=== PATIENT | male | born 1955 | race Caucasian/White ===

== ENCOUNTER 2018-04-30 16:34 | Inpatient (IN) | payer BC ==
[~2018-04-30] VITALS: Ht 188 cm; Wt 95.7 kg
--- NOTE | 2018-04-30 16:36 | NUR ---
PT JORGE GUALLPA, CURRENTLY AWAITING BED
--- NOTE | 2018-04-30 16:39 | NUR ---
PT TAKEN TO BED 11 BY EMS CREW
--- NOTE | 2018-04-30 16:40 | NUR ---
PATIENT BIBA FOR LEFT FLANK PAIN X 2 WEEKS AND CHEST PAIN X FEW HOURS. [facility] GAVE PT NITRO X 2 WITH NO RELIEF. PT HAS IV IN WRIST 20 GAUGE. PT STATED HE WAS WALKING HIS DOG AND THE PAIN BECAME OVERWHELMING. BP 124/72, PULSE IS 126. PAIN IS 10/10 AT THIS TIME. BOWEL SOUNDS ACTIVE IN ALL 4 Q. PT IS A/OX 4. MED HX IS HTN. KNA; VSS; PATIENT POSITIONED FOR COMFORT; HOB ELEVATED; BEDRAILS UP X2; BED DOWN. ER MD MADE AWARE OF PT STATUS.
[2018-04-30 16:46] VITALS: BP 124/72
--- NOTE | 2018-04-30 17:15 | NUR ---
SPOKE TO ON THE PHONE TO LET HER KNOW PT IS IN THE HOSPITAL PER PT INSTRUCTIONS.
[2018-04-30 17:26] LABS: BASOPHILS % (AUTO) 0.3 % (0.0-2.0); EOSINOPHILS # (AUTO) 0.1 K/uL (0-0.4); EOSINOPHILS % (AUTO) 1.1 % (0.0-4.0); HEMATOCRIT 42.9 % (36-52); HEMOGLOBIN 14.2 g/dL (12.0-18.0); LYMPHOCYTES # (AUTO) 1.1 K/uL (2.0-11.5); LYMPHOCYTES % (AUTO) 8.7 % (20.5-51.1); MEAN CORPUSCULAR HEMOGLOBIN 30 pg (27-31); MEAN CORPUSCULAR HGB CONC 33 g/dL (33-37); MEAN CORPUSCULAR VOLUME 90.1 fL (80-94); MONOCYTES # (AUTO) 0.5 K/uL (0.8-1.0); MONOCYTES % (AUTO) 4.2 % (1.7-9.3); NEUTROPHILS # (AUTO) 10.9 K/uL (1.8-7.7); NEUTROPHILS % (AUTO) 85.7 % (42.2-75.2); PLATELET COUNT (AUTO) 250 K/uL (140-450); RED BLOOD CELL COUNT(AUTO) 4.76 MIL/uL (4.20-6.10); RED CELL DISTRIBUTION WIDTH 12.7 % (11.6-13.7); WHITE BLOOD COUNT (AUTO) 12.7 K/uL (4.8-10.8)
[2018-04-30 17:38] LABS: ANION GAP 12.1 (8-16); CARBON DIOXIDE 27.5 mmol/L (21-32); CREATININE 1.1 mg/dL (0.7-1.3); POTASSIUM 3.6 mmol/L (3.5-5.1)
[2018-04-30 17:49] LABS: PROTHROMBIN TIME 10.5 secs (10.8-13.4)
[2018-04-30 17:50] LABS: ALBUMIN 3.8 g/dL (3.4-5.0); TOTAL BILIRUBIN 0.6 mg/dL (0.0-1.0)
--- NOTE | 2018-04-30 19:15 | NUR ---
REPORT GIVEN TO ALANNA AYERS
--- NOTE | 2018-04-30 20:05 | NUR ---
PT SITTING UP IN BED, VSS
[2018-04-30] MEDS ORDERED: MORPHINE SULFATE 4 MG/ML SYR IVP ONE ×2 (20:25→21:25)
[2018-04-30] MEDS ORDERED: LORazepam 2 MG/ML VIAL IVP ONE (20:25)
--- NOTE | 2018-04-30 21:00 | NUR ---
PT HAVING SOME PAIN. 11/10 AT THIS TIME. ER MD MADE AWARE
[2018-04-30] MEDS ORDERED: NITROGLYCERIN 0.4 MG TAB SL PRN (22:05)
[2018-04-30] MEDS ORDERED: DOCUSATE SODIUM 100 MG GELCAP PO PRN (22:05)
[2018-04-30] MEDS ORDERED: MORPHINE SULFATE 4 MG/ML SYR IVP PRN (22:05)
[2018-04-30] MEDS ORDERED: ACETAMINOPHEN 325 MG TAB PO PRN (22:05)
[2018-04-30] MEDS ORDERED: ONDANSETRON 4 MG/2 ML VIAL IM/IVP PRN (22:05)
[2018-04-30] MEDS ORDERED: HYDROcodone/APAP 5/325 MG 1 TAB TAB PO PRN (22:05)
[2018-04-30 22:35] VITALS: BP 128/74
--- NOTE | 2018-04-30 22:35 | NUR ---
Pt report given to PHILIPPE AYERS. Transfer of care at this time.VSS
--- NOTE | 2018-04-30 22:35 | NUR ---
Patient will be admitted to care of DR. MENON. Admited to TELEMETRY. Will go to room 106B. Belongings list completed. Report to PHILIPPE AYERS. PT VSS
--- NOTE | 2018-04-30 22:35 | NUR ---
RECEIVED REPORT FROM DAYSHIFT NURSE AT BEDSIDE FOR CONTINUITY OF CARE. PT AAOX4. PT IV NOTED R WRIST 20G. NO SOB NO S/S OF DISTRESS ON RA. BED LOWERED PT FALL RISK PT ORIENTED TO ROOM. WILL CONTINUE TO MONITOR.
[2018-04-30 22:39] LABS: MAGNESIUM 1.8 mg/dL (1.8-2.4); PHOSPHORUS 2.1 mg/dL (2.5-4.9); THYROID STIMULATING HORMONE 1.65 uIU/mL (0.34-3.74)
[2018-04-30] MEDS: NACL 0.9% 1,000 ML IV SCH (23:21)
[2018-04-30] MEDS ORDERED: HYDROmorphone 1 MG/ML AMP IVP PRN (23:55)
[2018-05-01] VITALS (12 sets, daily range): BP systolic 73–110; BP diastolic 43–69
[2018-05-01] MEDS ORDERED: SODIUM PHOS / POTASSIUM PHOS 1 PKT PDR PO ONE (01:30)
[2018-05-01] MEDS ORDERED: KETOROLAC 30 MG/ML VIAL IVP PRN (01:30)
[2018-05-01] MEDS ORDERED: ALPR0.5T2 PO (01:46)
[2018-05-01] MEDS ORDERED: ACET-9533 PO (01:46)
[2018-05-01] MEDS ORDERED: ATEN1TAB PO (01:46)
[2018-05-01] MEDS ORDERED: ZET10 PO (01:46)
[2018-05-01 01:48] LABS: APPEARANCE,URINE CLEAR (CLEAR); BILIRUBIN,URINE NEGATIVE (NEGATIVE); BLOOD, URINE 1+ (NEGATIVE); COLOR,URINE YELLOW (YELLOW); LEUKOCYTE ESTERASE ,URINE NEGATIVE (NEGATIVE); NITRITE, URINE NEGATIVE (NEGATIVE); UGLUCOSE NEGATIVE (NEGATIVE)
[2018-05-01 02:15] LABS: BARBITURATE, URINE NEGATIVE ng/ml (NEG <=200); BENZODIAZEPINE, URINE POSITIVE ng/mL (NEG <=200); CANNABINOID, URINE NEGATIVE ng/mL (NEG <=50); COCAINE, URINE NEGATIVE ng/mL (NEG <=300); OPIATE, URINE POSITIVE ng/mL (NEG <=2000); PHENCYCLIDINE SCREEN,URINE NEGATIVE ng/mL (NEG <=25)
[2018-05-01] MEDS: ALPRAZolam 0.5 MG TAB PO SCH ×3 (02:55→21:38)
[2018-05-01] MEDS ORDERED: ALPRAZolam 0.25 MG TAB ONE (03:02)
[2018-05-01 03:15] LABS: RBC,URINE 0-5 (RARE) /HPF (0-5); WBC,URINE 0-5 (RARE) /HPF (0-5)
[2018-05-01] MEDS ORDERED: METOPROLOL 25 MG TAB PO ONE (03:40)
[2018-05-01] MEDS ORDERED: CYCLOBENZAPRINE 10 MG TAB PO SCH ×2 (03:45→09:00)
[2018-05-01] MEDS ORDERED: oxyCODONE/APAP 5/325 MG 1 TAB TAB PO PRN (05:05)
[2018-05-01] MEDS: HYDROmorphone 1 MG/ML AMP IVP PRN ×3 (05:20→21:44)
--- NOTE | 2018-05-01 07:20 | NUR ---
RECEIVED REPORT FROM PERPETUAL INVENTORY CLERK NURSE AT BEDSIDE. PT IS AAOX4. IV NOTED R WRIST 20G, PATENT AND INTACT, INFUSING IV NS AT 60ML/HR. NO S/S OF DISTRESS ON 2L O2 NC. BED IN LOWEST POSITION. FALL RISK PRECAUTION IN PLACE. PT ON TELE. WILL CONTINUE TO MONITOR.
--- NOTE | 2018-05-01 07:26 | NUR ---
ENDORSED REPORT TO DAYSHIFT NURSE AT BEDSIDE FOR CONTINUITY OF CARE.
[2018-05-01 07:27] LABS: HEMATOCRIT 47.3 % (36-52); HEMOGLOBIN 15.4 g/dL (12.0-18.0); LYMPHOCYTES # (AUTO) 0.5 K/uL (2.0-11.5); LYMPHOCYTES % (AUTO) 7.9 % (20.5-51.1); MEAN CORPUSCULAR HEMOGLOBIN 30 pg (27-31); MEAN CORPUSCULAR HGB CONC 33 g/dL (33-37); MEAN CORPUSCULAR VOLUME 91.5 fL (80-94); MONOCYTES # (AUTO) 0.6 K/uL (0.8-1.0); MONOCYTES % (AUTO) 9.7 % (1.7-9.3); NEUTROPHILS # (AUTO) 5.5 K/uL (1.8-7.7); NEUTROPHILS % (AUTO) 82.4 % (42.2-75.2); PLATELET COUNT (AUTO) 325 K/uL (140-450); RED BLOOD CELL COUNT(AUTO) 5.17 MIL/uL (4.20-6.10); RED CELL DISTRIBUTION WIDTH 12.8 % (11.6-13.7); WHITE BLOOD COUNT (AUTO) 6.7 K/uL (4.8-10.8)
--- NOTE | 2018-05-01 07:50 | NUR ---
VITALS CHECKED WHEN PT IS SITTING, BP 73/52 HR 108, REPORTED TO DR WHALEY. MADE PT SUPINE IN THE BED RECHECKED BP 75/46.
--- NOTE | 2018-05-01 08:00 | NUR ---
CONSENT FOR CT IV CONTRAST SIGNED. PT DENIES ANY ALLERGY. PT WAS TAKEN RADIOLOGY WITH O2 2L NC.
--- NOTE | 2018-05-01 08:11 | NUR ---
PATIENT HAS BEEN SCREENED AND CATEGORIZED MODERATE NUTRITION RISK. PATIENT WILL BE SEEN WITHIN 3-5 DAYS OF ADMISSION. 05/03/18[address]
[2018-05-01 08:35] LABS: ANION GAP 17.5 (8-16); CARBON DIOXIDE 25.8 mmol/L (21-32); CREATININE 1.9 mg/dL (0.7-1.3); POTASSIUM 4.3 mmol/L (3.5-5.1)
[2018-05-01 08:49] LABS: MAGNESIUM 1.4 mg/dL (1.8-2.4); PHOSPHORUS 4.2 mg/dL (2.5-4.9)
[2018-05-01 08:54] LABS: CHOL/HDL RATIO 2.6 (1-4.5)
[2018-05-01] MEDS ORDERED: LISINOPRIL 5 MG TAB PO SCH (09:00)
[2018-05-01] MEDS ORDERED: METHOCARBAMOL 500 MG TAB PO SCH (09:00)
[2018-05-01] MEDS ORDERED: DOCUSATE SODIUM 100 MG GELCAP PO SCH (09:00)
[2018-05-01] MEDS ORDERED: METOPROLOL 25 MG TAB PO SCH (09:00)
[2018-05-01] MEDS ORDERED: ATENOLOL 50 MG TAB PO SCH (09:00)
[2018-05-01] MEDS: CARISOPRODOL 350 MG TAB PO SCH ×3 (09:22→17:02)
[2018-05-01] MEDS: GABAPENTIN 300 MG CAP PO SCH ×3 (09:22→17:02)
[2018-05-01] MEDS: ATORVASTATIN 20 MG TAB PO SCH (09:22)
[2018-05-01] MEDS: DOCUSATE SODIUM 100 MG GELCAP PO SCH ×2 (09:22→21:38)
[2018-05-01] MEDS: ASPIRIN 81 MG TAB.CHEW PO SCH (09:24)
[2018-05-01] MEDS: DULoxetine 30 MG CAPDR PO SCH (09:38)
[2018-05-01] MEDS: EZETIMIBE 10 MG TAB PO SCH (09:38)
--- NOTE | 2018-05-01 10:10 | NUR ---
TRANSFERRED IN FROM [facility] PER BED THIS 62 YR. OLD MALE FOR LEFT CHEST TUBE INSERTION ACCPD. BY DR. FONTANA, , RESIDENETS, [facility] RNS. PT LYING ON HIS RT. SIDE. 02 ADM. AT 2 L/MIN/NC. IV 0.9 NS INFUSING AT 130ML/HR VIA RT. FOREARM IV SITE. PLACED ON MACHINERY DISMANTLER, IN ST WITHOUT ECTOPICS HR 108/MIN. [place] WELL. HAND GRASPS EQUAL. .
--- NOTE | 2018-05-01 10:15 | NUR ---
DR. WHALEY SPOKE TO PT'S RE: CHEST TUBE INSERTION. CONSENT OBTAINED.
--- NOTE | 2018-05-01 10:16 | NUR ---
MORPHINE 2 MG IVP GIVEN PRIOR TO CHEST TUBE INSERTION.
--- NOTE | 2018-05-01 10:17 | NUR ---
VERSED 2 MG IVP GIVEN.
--- NOTE | 2018-05-01 10:19 | NUR ---
ZOFRAN 4 MG IVP GIVEN PRIOR TO CHEST TUBE INSERTION.
[2018-05-01] MEDS ORDERED: MORPHINE SULFATE 2 MG/ML SYR ONE (10:20)
[2018-05-01] MEDS ORDERED: MIDAZOLAM 2 MG/2 ML VIAL ONE (10:21)
--- NOTE | 2018-05-01 10:30 | NUR ---
LEFT CHEST TUBE INSERTED BY DR. FONTANA (ER PHYSICIAN) CONNECTED TO PLEUREVAC DRAINAGE TO 20 CM SUCTION.. OBTAINED 1550 ML OF DARK BROWN DRElicia
[2018-05-01] MEDS ORDERED: ONDANSETRON 4 MG/2 ML VIAL IVP ONE (10:50)
[2018-05-01] MEDS ORDERED: MIDAZOLAM 2 MG/2 ML VIAL IV ONE (10:50)
[2018-05-01] MEDS ORDERED: MORPHINE SULFATE 2 MG/ML SYR IVP ONE (10:50)
[2018-05-01] MEDS ORDERED: LIDOCAINE 1% 500 MG/50 ML VIAL INJ SCH (11:00)
[2018-05-01] MEDS ORDERED: LIDOCAINE 1% ***ER ONLY *** 10 MG/ML VIAL INJ SCH (11:00)
--- NOTE | 2018-05-01 11:00 | NUR ---
RECEIVED REPORT FROM ODALYS. PT RESTING IN BED, AWAKE. A/O X4. MAKES NEEDS KNOWN. NO SOB OR ACUTE RESPIRATORY DISTRESS NOTED. ON O2 AT 2 LTR/MIN VIA NC. SKIN DRY AND WARM TO TOUCH. LUNGS SOUND DIMINISHED. CHEST TUBE NOTED ON LEFT LOWER CHEST DRAINING DARK RED DRAINAGE. CHEST TUBE SECURED WITH DRESSING, INTACT. RIGHT FOREARM PERIPHERAL LINE 20. INTACT. FLUSHED. NS RUNNING AT 130 ML/HR. ABDOMEN SOFT ROUND AND NON-TENDER. ACTIVE BOWEL SOUND. NERVE STIMULATOR IMPLANT ( PER PT) ON LEFT BUTTOCK NOTED. SITE INTACT. SKIN INTACT. HOB ELEVATED. BED IN LOW POSITION LOCKED. WILL CONTINUE TO MONITOR. Addendum: 05/01/18 at 1500 by Mariola Barker RN NOT NERVE, NEURO STIMULATOR
--- NOTE | 2018-05-01 11:00 | NUR ---
PORTABLE CXR DONE.
[2018-05-01] MEDS: NACL 0.9% 1,000 ML IV SCH ×2 (11:01→13:18)
--- NOTE | 2018-05-01 11:38 | NUR ---
THORACENTESIS FLUID FOR FUNGAL CULTURE TAKEN TO THE LAB.
--- NOTE | 2018-05-01 11:45 | NUR ---
PT C/O CHEST PAIN. DENIES SOB OR DIFFICULTY BREATHING. CONTINUE ON O2 AT 2 LTR/MIN VIA NC. DILAUDID ADMINISTERED PER ORDER. DENIES DIZZINESS OR NAUSEA. AT BEDSIDE. CONTINUE TO MONITOR.
--- NOTE | 2018-05-01 11:53 | NUR ---
DR. WHALEY MADE AWARE ABOUT DECREASED BP 74/50. WILL F/U ORDER.
--- NOTE | 2018-05-01 12:22 | NUR ---
RECEIVED A CALL FROM BLADE SCALE CLERK FOR [facility]. FOR DISCHARGE NEEDS CALL HIM AT [phone]. WHEN STABLE, MAY WANT TO TRANSFER TO CONTRACTED HOSPITAL.
--- NOTE | 2018-05-01 12:23 | NUR ---
DR. WHALEY MADE AWARE ABOUT BP 84/57. WILL FOLLOW UP ON ORDER.
[2018-05-01] MEDS ORDERED: NACL 0.9% 1,000 ML IV ONE ×2 (12:25→18:55)
--- NOTE | 2018-05-01 12:59 | NUR ---
PT ON NS BOLUS. PT AWAKE. NO ANY CHANGE IN LOC. CONTINUE TO MONITOR.
--- NOTE | 2018-05-01 13:09 | NUR ---
TURNED OFF THE CHEST TUBE SUCTION PER DR. MARCH.
--- NOTE | 2018-05-01 13:09 | NUR ---
PT SEEN BY DR. FRANCO. UPDATED PT CONDITION. AWARE ABOUT LOW BP 75/48.
--- NOTE | 2018-05-01 13:36 | NUR ---
ECHO AT BEDSIDE AT THIS TIME.
--- NOTE | 2018-05-01 13:55 | NUR ---
DR. WHALEY MADE AWARE ABOUT BP 84/61. EVALUATED BY DR. METCALF. NS INFUSING AT 130 ML/HR. NO C/O CHEST PAIN. NO SOB OR RESPIRATORY DISTRESS NOTED. CONTINUE ON O2 AT 2 LTR/MIN VIA NC. HOB ELEVATED. BED IN LOW POSITION. CONTINUE ON BEDSIDE MONITOR.
--- NOTE | 2018-05-01 14:13 | NUR ---
DR. MCKOY MADE AWARE ABOUT LOW MAGNESIUM 1.4 AND CA 8.4. WILL F/U ORDER.
[2018-05-01] MEDS ORDERED: MAG SULF 2000 MG/WATER PREMIX 100 ML IV ONE (14:15)
[2018-05-01] MEDS ORDERED: MAG SULF 2000 MG/WATER PREMIX 100 ML IV SCH ×2 (14:30→14:40)
[2018-05-01 14:39] LABS: APPEARANCE,UNSPUN,BODY FLUID CLOUDY (CLEAR); SPECIMENTYPE,BODY FLUID PLEURAL
[2018-05-01 14:42] LABS: APPEARANCE,SPUN,BODY FLUID CLOUDY (CLEAR); COLOR,BODY FLUID AMBER (LT YELLOW); POLYNUCLEAR, BODY FLUID 97 %; RBC, BODY FLUID 569 /cu. mm.; TOTAL VOLUME,BODY FLUID 60 mL; WBC, BODY FLUID 6180 /cu. mm.
[2018-05-01 15:22] LABS: GLUCOSE,BODY FLUID 54 mg/dL
--- NOTE | 2018-05-01 16:13 | NUR ---
NO C/O ANY CHEST PAIN. NO SOB OR ACUTE RESPIRATORY DISTRESS NOTED. CONTINUE ON O2 AT 2 LTR/MIN. NS INFUSING AT 130 ML/HR. CHEST TUBE IN PLACE. DRESSING SITE DRY AND INTACT. WILL CONTINUE TO MONITOR.
--- NOTE | 2018-05-01 16:53 | NUR ---
CHEST X-RAY RESULT RECEIVED. READ RESULT TO DR. CALDWELL. DR. WHALEY AWARE ABOUT THE RESULT. TURNED THE CHEST TUBE SUCTION ON PER DR WHALEY.
[2018-05-01] MEDS ORDERED: MAG SULF 2000 MG/WATER PREMIX 50 ML IV SCH (17:15)
--- NOTE | 2018-05-01 18:23 | NUR ---
DR. MOREL AT THE BEDSIDE EVALUATING PT.
--- NOTE | 2018-05-01 18:40 | NUR ---
PT NOTED WITH BP 75/45. DR. CAMARENA MADE AWARE. NO URINE OUTPUT NOTED THROUGHOUT THE SHIFT. BLADDER SCAN DONE SHOWED> 579 ML. PT DENIES ANY BLADDER DISCOMFORT OR PAIN. STATED HE HAD VOIDED X1 THIS MORNING. ENCOURAGED TO VOID X2 THROUGHOUT THE SHIFT BUT UNABLE TO MAKE IT. PT STATED HE WANTS TO TRY VOIDING LATER. DR. CAMARENA MADE AWARE.
--- NOTE | 2018-05-01 18:46 | NUR ---
PT RESTING IN BED. DENIES ANY CHEST PAIN OR DIFFICULTY BREATHING. CONTINUE ON O2 AT 2 LTR/MIN VIA NC. CHEST TUBE IN PLACE. DRESSING DRY AND INTACT.
--- NOTE | 2018-05-01 19:20 | NUR ---
RECEIVED REPORT FROM MORNING SHIFT RN, DINORA, FOR CONTINUITY OF CARE. PT IS AAOX4, AFEBRILE TEMP 98.3, BP =87/50 , RR=28, SATING 95%. FULL CODE, NKA.ST ON MARINE BIOLOGIST. LUNG SOUND CLEAR/DIMINISHED ON BILATERAL UPPER/LOWER LOBES. ON 4L N/C. CARDIAC DIET, PT DRINKING WATER AT BEDSIDE. CONTINENT, URINAL AT BEDSIDE. NO URINE OUT PUT AT THIS TIME. UP AT BEDSIDE WITH STREET WORKERDILLAN FOR STANDBY ASSISTANCE. SKIN IS NONINTACT. CHEST TUBE ON LLQ, DARK SANGUINOUS DRAINAGE OF 550ML. PT RATES PAIN 7/10. LEFT FOREARM PIV 22 GAUGE BOLUS OF 1L INFUSING. HOB ELEVATED, SCDS ON BILATERAL LEGS. BED IN LOWEST POSITION. SIDE RAILS UPX4.
--- NOTE | 2018-05-01 19:27 | NUR ---
REPORT GIVEN TO PAI GOW DEALER ANDRIA AGUIRRE.
--- NOTE | 2018-05-01 19:43 | NUR ---
RT OROPEZA AT BEDSIDE TO SEE PATIENT. FAMILY AT BEDSIDE.
--- NOTE | 2018-05-01 20:07 | NUR ---
PT SLEEPING, EV=767, BP=94/55, SATING AT 97%. 1L BOLUS INFUSING INTO LEFT FOREARM 20 GAUGE PIV.
[2018-05-01] MEDS: oxyCODONE/APAP 5/325 MG 1 TAB TAB PO PRN (22:58)
--- NOTE | 2018-05-01 23:03 | NUR ---
BLADDER SCANNED PT = 874ML RECORDED. NS AT 100ML/HR INFUSING. BP =100/54. DR. MELARA AT BEDSIDE TO SEE PT, UPDATED ON PT CONDITION.
[2018-05-01] MEDS ORDERED: TAMSULOSIN 0.4 MG CAP PO ONE (23:30)
[2018-05-02] VITALS (12 sets, daily range): BP systolic 86–127; BP diastolic 41–75
[2018-05-02] MEDS ORDERED: TAMSULOSIN 0.4 MG CAP PO SCH
--- NOTE | 2018-05-02 00:17 | NUR ---
COMPLETED STRAIGHT CATH, MAINTAINED STERILE TECHNIQUE. URINE IS DARK LEANDRO IN COLOR, OUTPUT OF ~725ML.
[2018-05-02] MEDS: NACL 0.9% 1,000 ML IV SCH (01:56)
--- NOTE | 2018-05-02 04:36 | NUR ---
DR. MELARA PRESENT IN ICU, INFORMED OUTPUT OF CHEST TUBE FROM START OF SHIFT ~900ML. INFORMED THAT WHEN PT STAND UP AT BEDSIDE THERE IS INCREASE IN DRAINAGE. PER DR. MELARA, WHEN DRAINAGE FROM CHEST TUBE STARTS TO DECREASE, PLAN TO SWITCH TO GRAVITY.
--- NOTE | 2018-05-02 05:01 | NUR ---
XRAY AT BEDSIDE. PT AWAKE, ABLE TO ASSIST WITH REPOSITIONING. RATED PAIN 5/10.
--- NOTE | 2018-05-02 05:26 | NUR ---
PT AWAKE, DR. WHALEY AT BEDSIDE TO SEE PATIENT, UPDATED ON PT CONDITIONS. Addendum: 05/02/18 at 0534 by Gina Mi RN CHEST TUBE SET TO GRAVITY, PER DR. WHALEY.
[2018-05-02] MEDS: HYDROmorphone 1 MG/ML AMP IVP PRN ×3 (05:39→19:56)
[2018-05-02 05:57] LABS: HEMATOCRIT 39.9 % (36-52); HEMOGLOBIN 13.1 g/dL (12.0-18.0); MEAN CORPUSCULAR HEMOGLOBIN 30 pg (27-31); MEAN CORPUSCULAR HGB CONC 33 g/dL (33-37); PLATELET COUNT (AUTO) 184 K/uL (140-450); RED BLOOD CELL COUNT(AUTO) 4.38 MIL/uL (4.20-6.10); WHITE BLOOD COUNT (AUTO) 6.5 K/uL (4.8-10.8)
[2018-05-02 06:19] LABS: CREATININE 1.4 mg/dL (0.7-1.3)
[2018-05-02 06:22] LABS: MAGNESIUM 2.3 mg/dL (1.8-2.4); PHOSPHORUS 2.2 mg/dL (2.5-4.9)
[2018-05-02 06:49] LABS: ANION GAP 8.7 (8-16); CARBON DIOXIDE 27.6 mmol/L (21-32); POTASSIUM 4.3 mmol/L (3.5-5.1)
--- NOTE | 2018-05-02 07:29 | NUR ---
bedside report received from ammon rn for continuity of care. will monitor patient. Addendum: 05/02/18 at 1336 by Donna Acevedo RN Patient is awake. AOx4, able to follow simple commands. On O2 @ 2lpm/NC. Right lateral chest tube noted to gravity. Skin warm to touch wnl, toenails wnl, no edema, with hair growth and +3 bilateral pedal pulses. No complaints of pain made at this time. VS stable. LFA g22 peripheral IV patent and intact to NS at 80 cc/h. Call light within reach, bed at lowest possible position. Will monitor patient.
--- NOTE | 2018-05-02 07:30 | NUR ---
PROVIDED BEDSIDE REPORT TO MORNING SHIFT RNWILBER, FOR CONTINUITY OF CARE.
--- NOTE | 2018-05-02 08:00 | NUR ---
DR MENON AND GROUP ROUNDING. WILL FOLLOW UP WITH ORDERS.
[2018-05-02] MEDS: ASPIRIN 81 MG TAB.CHEW PO SCH (08:52)
[2018-05-02] MEDS: DOCUSATE SODIUM 100 MG GELCAP PO SCH ×2 (08:52→20:56)
[2018-05-02] MEDS: DULoxetine 30 MG CAPDR PO SCH (08:52)
[2018-05-02] MEDS: CARISOPRODOL 350 MG TAB PO SCH ×3 (08:53→16:27)
[2018-05-02] MEDS: GABAPENTIN 300 MG CAP PO SCH ×3 (08:53→16:27)
[2018-05-02] MEDS: ATORVASTATIN 20 MG TAB PO SCH (08:53)
[2018-05-02] MEDS: EZETIMIBE 10 MG TAB PO SCH (08:54)
[2018-05-02] MEDS: ALPRAZolam 0.5 MG TAB PO SCH ×2 (08:54→20:56)
[2018-05-02] MEDS: SODIUM PHOS / POTASSIUM PHOS 1 PKT PDR PO SCH ×2 (09:00→20:56)
[2018-05-02 09:02] LABS: MONOCYTES % (MANUAL) 5 % (5-12)
[2018-05-02 09:03] LABS: LYMPHOCYTES % (MANUAL) 12 % (20-46); METAMYELOCYTES % 1 % (0-0); MYELOCYTES % 1 % (0-0)
--- NOTE | 2018-05-02 09:45 | NUR ---
DR. ANCA PARSON, WILL FOLLOW UP WITH ORDERS. PER DR. MARCH PATIENT MAY TRANSFER TO TELE AND KEEP CHEST TUBE TO GRAVITY.
--- NOTE | 2018-05-02 11:30 | NUR ---
PATIENT'S AT BEDSIDE, UPDATED OF PATIENT'S CONDITION.
--- NOTE | 2018-05-02 12:10 | NUR ---
PATIENT OOB TO CHAIR HAVING LUNCH. WITH BEARABLE PAIN CLAIMED.
--- NOTE | 2018-05-02 13:15 | NUR ---
BACK IN BED, WITH BEARABLE PAIN CLAIMED.
--- NOTE | 2018-05-02 15:00 | NUR ---
RESTING QUIETLY AT THIS TIME. NO COMPLAINTS OF PAIN MADE.
[2018-05-02] MEDS ORDERED: ATENOLOL 50 MG TAB PO SCH (16:15)
--- NOTE | 2018-05-02 18:02 | NUR ---
COMPLAINED OF 5/10 PAIN. WILL ADMINISTER PERCOCET PRN MED.
[2018-05-02] MEDS: oxyCODONE/APAP 5/325 MG 1 TAB TAB PO PRN (18:07)
--- NOTE | 2018-05-02 19:15 | NUR ---
RECEIVED BEDSIDE REPORT FROM MORNING SHIFT RNWILBER, FOR CONTINUITY OF CARE. PT IS AAOX4, ABLE TO MAKE NEEDS KNOWN. ON 2L N/C SATING 91-92%, LUNG SOUND CLEAR ON AUSCULTATION. AFEBRILE TEMP 99.1, TF=044, RR=12, BP = 90/41. ST ON CANCELLATION CLERK. BOWEL SOUND ACTIVE X4. DENIES N/V. CONTINENT. LEFT FOREARM 22 GAUGE INFUSING NS AT 80ML/HR. CHEST TUBE IN PLACE, COVERED WITH ABDOMINAL BINDER, SANGUINOUS DRAINAGE IN TUBING. ABLE TO REPOSITION SELF IN BED, PILLOW SUPPORT, AND SCDS ON BILATERAL LEGS. HOB ELEVATED, BED IN LOWEST POSITION. SIDE RAILS UP X3. STANDARD PRECAUTIONS MAINTAINED.
--- NOTE | 2018-05-02 19:58 | NUR ---
ACHING PAIN AT CHEST TUBE SITE RATED 7/10, DILUADID ADMINISTERED.
--- NOTE | 2018-05-02 22:37 | NUR ---
DR. MELARA CALLED ICU, STATED TO CLAMP CHEST TUBE. WILL CARRY OUT.
[2018-05-03] VITALS (11 sets, daily range): BP systolic 88–127; BP diastolic 31–72
--- NOTE | 2018-05-03 00:51 | NUR ---
PT ASLEEP AT THIS TIME, ABLE TO REPOSITION SELF IN BED. CHEST TUBE REMAINS CLAMPED. HOB ELEVATED. NS INFUSING AT 70ML/HR TO LEFT FOREARM PIV. NO SIGNS OF DISTRESS NOTED. VSS. TEMP 98.6
--- NOTE | 2018-05-03 02:30 | NUR ---
CALLED DR. MELARA, UPDATED ON PT CONDITION. UNCLAMPED CHEST TUBE DUE TO BUILDUP/LEAKAGE AT CHEST TUBE SITE, SANGUINOUS DRAINAGE. PT WAS UP AT BEDSIDE USING URINAL WITH OUTPUT OF 700ML, DARK LEANDRO IN COLOR.
[2018-05-03] MEDS: HYDROmorphone 1 MG/ML AMP IVP PRN (02:40)
--- NOTE | 2018-05-03 03:00 | NUR ---
[facility]ES PROVIDED, CHEST TUBE DRESSING CHANGED, NEW ABDOMINAL BINDER AND GOWN PROVIDED. CHEST TUBE OUTPUT AT THIS TIME: 850ML.
[2018-05-03] MEDS ORDERED: NACL 0.9% 500 ML IV ONE (03:35)
--- NOTE | 2018-05-03 03:46 | NUR ---
LOW BP= 80/47, DR. MELARA ORDERED 500ML BOLUS, INFUSING TO LEFT FOREARM PIV. PT ASLEEP QUIETLY, YET EASY TO AROUSE.
--- NOTE | 2018-05-03 05:18 | NUR ---
BP = 90/44, PT IS SLEEPING, SCDS ON BILATERAL LEGS, NS INFUSING AT 80ML/HR. CHEST TUBE REMAINS UNCLAMPED, SANGUINOUS DARK RED DRAINAGE NOTED.
[2018-05-03] MEDS: oxyCODONE/APAP 5/325 MG 1 TAB TAB PO PRN (05:25)
[2018-05-03] MEDS ORDERED: FUROSEMIDE 20 MG/2 ML VIAL IVP SCH (05:30)
[2018-05-03 05:44] LABS: EOSINOPHILS % (AUTO) 0.1 % (0.0-4.0); HEMATOCRIT 36.8 % (36-52); HEMOGLOBIN 11.9 g/dL (12.0-18.0); LYMPHOCYTES # (AUTO) 0.7 K/uL (2.0-11.5); LYMPHOCYTES % (AUTO) 6.5 % (20.5-51.1); MEAN CORPUSCULAR HEMOGLOBIN 29 pg (27-31); MEAN CORPUSCULAR HGB CONC 32 g/dL (33-37); MEAN CORPUSCULAR VOLUME 91.1 fL (80-94); MONOCYTES % (AUTO) 9.2 % (1.7-9.3); NEUTROPHILS # (AUTO) 9.6 K/uL (1.8-7.7); NEUTROPHILS % (AUTO) 84.2 % (42.2-75.2); PLATELET COUNT (AUTO) 245 K/uL (140-450); RED BLOOD CELL COUNT(AUTO) 4.03 MIL/uL (4.20-6.10); RED CELL DISTRIBUTION WIDTH 12.9 % (11.6-13.7); WHITE BLOOD COUNT (AUTO) 11.4 K/uL (4.8-10.8)
--- NOTE | 2018-05-03 05:50 | NUR ---
DR. WHALEY IN TO SEE PATIENT, UPDATED ON PATIENT CONDITION, STATED TO RECLAMP CHEST TUBE AT THIS TIME, WILL CARRY OUT.
[2018-05-03 06:09] LABS: ANION GAP 6.2 (8-16); CARBON DIOXIDE 29.6 mmol/L (21-32); CREATININE 1.4 mg/dL (0.7-1.3); POTASSIUM 4.8 mmol/L (3.5-5.1)
[2018-05-03 06:16] LABS: MAGNESIUM 2.3 mg/dL (1.8-2.4); PHOSPHORUS 2.7 mg/dL (2.5-4.9)
--- NOTE | 2018-05-03 06:58 | NUR ---
CALLED [facility] NUMBER, SPOKE TO WENDY FOR LASIX VERIFICATION, STATED TO CALL BACK FOR MORNING PHARMACY.
--- NOTE | 2018-05-03 07:15 | NUR ---
RECEIVED REPORT FROM APPRENTICE/LINEMAN NURSE AT BEDSIDE, PT IS AAOX4, ABLE TO FOLLOW COMMANDS AND MAKE NEEDS KNOW, VSS, STATED SHARP CHEST PAIN 4/10 AND DIFFICULTY BREATHING, SLIGHT DISTRESS NOTED, DIMINISHED LUNG SOUND TO LEFT SIDE, ON O2 AT 2L VIA NC, O2 SAT 93%, MD AWARE, CHEST TUBE IN PLACE, DRESSING C/D/I, CLAMPED AT THIS TIME. DARK BROWN FLUID NOTED TO THE TUBE. SOFT ABDOMEN WITH ACTIVE BOWEL SOUNDS, CONTINENT WITH B&B'S, ABLE TO MOVE ALL EXTREMITIES, SLIGHT WEAKNESS NOTED. SKIN IS WARM AND DRY TO TOUCH, IV SITE TO LEFT FOREARM, 22GA, PATENT, RUNNING NS AT 80 ML/HR. EXPLAINED POC WITH PT, PT VERBALIZED UNDERSTANDING IT, HOB ELEVATED 30 DEGREES, POSITION CHANGED FOR COMFORT, SAFETY MEASURES IN PLACE, WILL CONTINUE TO MONITOR.
--- NOTE | 2018-05-03 08:34 | NUR ---
increased fio2 to 4lpm spo2 low rn aware
[2018-05-03] MEDS: ATORVASTATIN 20 MG TAB PO SCH (08:45)
[2018-05-03] MEDS: ASPIRIN 81 MG TAB.CHEW PO SCH (08:45)
[2018-05-03] MEDS: GABAPENTIN 300 MG CAP PO SCH ×3 (08:46→16:49)
[2018-05-03] MEDS: EZETIMIBE 10 MG TAB PO SCH (08:46)
[2018-05-03] MEDS: DOCUSATE SODIUM 100 MG GELCAP PO SCH (08:46)
[2018-05-03] MEDS: CARISOPRODOL 350 MG TAB PO SCH ×3 (08:46→16:49)
[2018-05-03] MEDS: DULoxetine 30 MG CAPDR PO SCH (08:46)
[2018-05-03] MEDS: SODIUM PHOS / POTASSIUM PHOS 1 PKT PDR PO SCH (08:46)
[2018-05-03] MEDS: ALPRAZolam 0.5 MG TAB PO SCH (08:46)
[2018-05-03] MEDS ORDERED: ATENOLOL 50 MG TAB PO SCH (09:00)
[2018-05-03] MEDS ORDERED: LACTOBACILLUS RHAMNOSUS GG 1 EACH CAP PO SCH (09:00)
--- NOTE | 2018-05-03 09:45 | NUR ---
PT IS OFF UNIT FOR CT CHEST VIA BED ACCOMPANIED WITH RN AND MED ASST.
[2018-05-03] MEDS: MORPHINE SULFATE 2 MG/ML SYR IVP PRN ×2 (10:13→13:54)
--- NOTE | 2018-05-03 10:15 | NUR ---
PT IS BACK TO UNITS, DR. MARCH SEEN PT AT BEDSIDE, WILL FOLLOW UP WITH NEW ORDERS
[2018-05-03] MEDS ORDERED: MIDAZOLAM 2 MG/2 ML VIAL ONE (10:28)
--- NOTE | 2018-05-03 10:45 | NUR ---
DR. MARCH REMOVED CHEST TUBE AT BEDSIDE, DR. WHALEY AT BEDSIDE WELL. PT IS TOLERATED WELL. C/O PAIN TO LEFT CHEST AFTER REMOVAL. DRESSING PLACED TO CHEST TUBE SITE.
[2018-05-03] MEDS ORDERED: VANCOMYCIN PER PHARMACY MC PRN ×2 (10:50→11:05)
[2018-05-03] MEDS ORDERED: VANCOMYCIN 1GM/DEXT 5% PREMIX 200 ML IV SCH (12:00)
--- NOTE | 2018-05-03 12:00 | NUR ---
PT IS RESTING IN BED, NO S/S OF DISTRESS, STILL C/O PAIN TO LEFT CHEST, WILL MEDICATED.
[2018-05-03] MEDS ORDERED: MIDAZOLAM 2 MG/2 ML VIAL IV SCH (12:30)
[2018-05-03] MEDS: NACL 0.9% 1,000 ML IV SCH (12:36)
[2018-05-03] MEDS ORDERED: PIPER/TAZO 3.375GM/D5W PREMIX 50 ML IV SCH (13:00)
--- NOTE | 2018-05-03 13:44 | NUR ---
Called [facility] and spoke with Farooq. Transport auth [id number]. Faxed medical record to [facility] . and spoke with Cyndi from transport center. [facility] MD will be calling Dr. Davis .
--- NOTE | 2018-05-03 13:52 | NUR ---
Called [facility] requesting for transfer for pt requiring higher level of care. Spoke with Lew and requesting medical record to be faxed to them. Faxed to [facility] medical record of pt.
--- NOTE | 2018-05-03 13:57 | NUR ---
KOJO NOTE *LATE ENTRY FOR 1300 FAXED CLINICAL PACKET TO [facility] [phone] AND [facility] [phone]. KOJO MARTINEZ.
--- NOTE | 2018-05-03 14:00 | NUR ---
CHEST TUBE SITE STILL LEAKING WITH COFFEE BROWN EMESIS, DRESSING CHANGED, PM CARE PROVIDED.
--- NOTE | 2018-05-03 14:06 | NUR ---
[facility] fax number . Phone number .
--- NOTE | 2018-05-03 14:11 | NUR ---
Rosa from [email or web address] will be covering for Farooq. .
--- NOTE | 2018-05-03 14:13 | NUR ---
Called [facility] . They want face sheet faxed to them. Faxed to [facility] pt's face sheet .
[2018-05-03] MEDS ORDERED: MORPHINE SULFATE 4 MG/ML SYR IVP PRN (15:25)
--- NOTE | 2018-05-03 15:39 | NUR ---
PT WITH LABORED BREATHING AND COARSE RHONCHI LOW 2PO2 .88 TO .90 PLACED PT ON 6LPM OXIMIZER DR WHALEY BEDSIDE RN AWARE
--- NOTE | 2018-05-03 16:00 | NUR ---
PT IS ASLEEP IN BED, NO S/S OF DISTRESS, VSS, CHEST TUBE SITE STILL LEAKING COFFEE BROWN EMESIS.
[2018-05-03] MEDS ORDERED: CARI350T34 PO (16:35)
[2018-05-03] MEDS ORDERED: ATOR20TA40 PO (16:35)
[2018-05-03] MEDS ORDERED: LACT10CA PO (16:35)
[2018-05-03] MEDS ORDERED: VANC1PLA9 IV (16:35)
[2018-05-03] MEDS ORDERED: ONDA2SOL45 IM/IVP (16:35)
[2018-05-03] MEDS ORDERED: GABA-638 PO (16:35)
[2018-05-03] MEDS ORDERED: PIPE1PDS39 IV (16:35)
[2018-05-03] MEDS ORDERED: ACET-1182 PO (16:35)
[2018-05-03] MEDS ORDERED: DULO30EC PO (16:35)
[2018-05-03] MEDS ORDERED: MORP4SOL10 IVP (16:35)
--- NOTE | 2018-05-03 16:55 | NUR ---
8275 CALLED [facility] TRANSFER UNIT AND SPOKE WITH CARLO AND PROVIDED HER WITH VERBAL REPORT OF PATIENTS NEEDS AND FAXED HER CLINICAL DOCUMENTATION AND PROVIDED HER WITH CONTACT PHONE FOR DR EDIE MARCH AND THE DIRECT LINE OF THE ICU UNIT. TRANSFER UNIT PHONE [phone] FAX [phone]. INFORMATION WILL BE REVIEWED AND WILL NEED TO CHECK FINANCIALS AND FIND AN ACCEPTING PHYSICIAN PER CARLO.
--- NOTE | 2018-05-03 18:16 | NUR ---
REPORT GIVEN TO ANDRIA BELLA AT [facility], PT IS GOING TO UNIT 7100, NO BED NUMBER YET, ACCEPTING DOCTOR IS LUDY, PICKING UP TIME WILL BE 1900.
--- NOTE | 2018-05-03 19:00 | NUR ---
[facility] CAME IN TO MACHINE JOINT CUTTER PT, REPORT GIVEN, PT'S AT BEDSIDE, ALL BELONGS GOES WITH FAMILY, PT'S SIGNED DISCHARGE PAGE, DISCHARGE PACKAGE GIVEN TO [facility]. Addendum: 05/03/18 at 1920 by Matthew Gaffney RN DR. MELARA AT BEDSIDE TO MAKE SURE PT IS SAFE UNTIL PT LEFT UNIT WITH [facility].
== END 2018-05-03 19:00 | disposition short-term general hospital (02) | DRG 199 ==
LOC: MED 16:34 → MTU 22:11 → MIC 05-01 10:01
PROVIDERS: ADMIT General Practice; ATTEND General Practice
PROC: 0W9B30Z Drainage of Left Pleural Cavity with Drainage Device, Percutaneous Approach (ICD-10-PCS; principal; 2018-05-01)
DX: J93.0 Spontaneous tension pneumothorax (principal); N17.0 Acute kidney failure with tubular necrosis; K22.3 Perforation of esophagus; K65.9 Peritonitis, unspecified; J98.11 Atelectasis; M94.0 Chondrocostal junction syndrome [Tietze]; G89.4 Chronic pain syndrome; G62.9 Polyneuropathy, unspecified; E78.00 Pure hypercholesterolemia, unspecified; F41.1 Generalized anxiety disorder; E83.39 Other disorders of phosphorus metabolism; E66.3 Overweight; E86.0 Dehydration; M48.00 Spinal stenosis, site unspecified; E78.5 Hyperlipidemia, unspecified; F17.200 Nicotine dependence, unspecified, uncomplicated; D72.828 Other elevated white blood cell count; E83.51 Hypocalcemia; M47.9 Spondylosis, unspecified; E83.42 Hypomagnesemia; K44.9 Diaphragmatic hernia without obstruction or gangrene; I50.9 Heart failure, unspecified; I11.0 Hypertensive heart disease with heart failure; I35.8 Other nonrheumatic aortic valve disorders; J93.83 Other pneumothorax; Z68.27 Body mass index [BMI] 27.0-27.9, adult; Z87.11 Personal history of peptic ulcer disease; Z79.899 Other long term (current) drug therapy; Z82.49 Family history of ischemic heart disease and other diseases of the circulatory system; Z80.3 Family history of malignant neoplasm of breast; Z80.0 Family history of malignant neoplasm of digestive organs; Z82.5 Family history of asthma and other chronic lower respiratory diseases
CPT/HCPCS: 36415; 71045; 71250; 71260; 80048; 80053; 80305; 81001; 82150; 82945; 83036; 83690; 83735; 83880; 84100; 84157; 84443; 84484; 85025; 85610; 85730; 87040; 87070; 87075; 87081; 87102; 87205; 88305; 89051; 93005; 96374; 96375; 96376; 99285; C1758; J0696; J1170; J1885; J2001; J2060; J2250; J2270; J2405; J2543; J3370; J3475; J7030; J7060; Q0092; Q9967